=== PATIENT | female | born 1955 | race Caucasian/White ===

== ENCOUNTER 2024-10-02 10:48 | Emergency (ER) | payer BC, OTHER ==
[~2024-10-02] VITALS: Ht 167.6 cm; Wt 54.4 kg
[2024-10-02] MEDS: IBUPROFEN 200 MG TABLET PO ONE (12:13)
[2024-10-02] MEDS: ACETAMINOPHEN 500 MG TABLET PO ONE (12:13)
[2024-10-02 12:26] VITALS: BP 107/73; TEMP 98.2; O2SAT 99
== END 2024-10-02 12:28 | disposition home or self-care (01) ==
LOC: ER 10:48
DX: S42.292A Other displaced fracture of upper end of left humerus, initial encounter for closed fracture (principal); Z88.0 Allergy status to penicillin; W01.0XXA Fall on same level from slipping, tripping and stumbling without subsequent striking against object, initial encounter; Y93.89 Activity, other specified; Y92.89 Other specified places as the place of occurrence of the external cause; Y99.8 Other external cause status
CPT/HCPCS: 73020; 73060; A4606; A4663

== ENCOUNTER 2024-10-07 08:00 | Emergency (ER) | payer SELFPAY ==
[~2024-10-07] VITALS: Ht 167.6 cm; Wt 53.5 kg
[2024-10-07 09:23] VITALS: BP 134/70; TEMP 98.6; O2SAT 99
== END 2024-10-07 09:29 | disposition home or self-care (01) ==
LOC: ER 08:00
DX: S09.8XXA Other specified injuries of head, initial encounter (principal); R51.9 Headache, unspecified; Z88.0 Allergy status to penicillin; W18.39XA Other fall on same level, initial encounter; Y93.89 Activity, other specified; Y92.89 Other specified places as the place of occurrence of the external cause; Y99.8 Other external cause status
CPT/HCPCS: 70450; A4606; A4663

== ENCOUNTER 2024-10-10 08:58 | Emergency (ER) | payer SELFPAY ==
[~2024-10-10] VITALS: Ht 167.6 cm; Wt 52.2 kg
[2024-10-10 11:57] VITALS: BP 110/69; O2SAT 98
== END 2024-10-10 11:30 | disposition home or self-care (01) ==
LOC: ER 08:58
DX: S42.252A Displaced fracture of greater tuberosity of left humerus, initial encounter for closed fracture (principal); M25.512 Pain in left shoulder; Z60.2 Problems related to living alone; Z88.0 Allergy status to penicillin; W18.39XA Other fall on same level, initial encounter; Y93.89 Activity, other specified; Y92.89 Other specified places as the place of occurrence of the external cause; Y99.8 Other external cause status
CPT/HCPCS: 73020; A4606; A4663

== ENCOUNTER 2025-03-09 09:03 | Emergency (ER) | payer MEDICARE ==
[~2025-03-09] VITALS: Ht 167.6 cm; Wt 54.4 kg
[2025-03-09 10:00] LABS: BASOPHILS % (AUTO) 1.2 % (0.0-2.0); EOSINOPHILS # (AUTO) 0.2 K/uL (0.0-0.7); EOSINOPHILS % (AUTO) 4.2 % (0.0-7.0); HEMATOCRIT 40.9 % (31.2-41.9); HEMOGLOBIN 13.6 g/dL (10.9-14.3); LYMPHOCYTES # (AUTO) 0.7 K/uL (0.8-4.8); LYMPHOCYTES % (AUTO) 17.4 % (20.5-51.5); MEAN CORPUSCULAR HEMOGLOBIN 31.1 uug (24.7-32.8); MEAN CORPUSCULAR HGB CONC 33 g/dL (32.3-35.6); MEAN CORPUSCULAR VOLUME 93.7 fL (75.5-95.3); MONOCYTES # (AUTO) 0.4 K/uL (0.1-1.30); MONOCYTES % (AUTO) 9.9 % (0.0-11.0); NEUTROPHILS # (AUTO) 2.6 K/uL (1.8-8.9); NEUTROPHILS % (AUTO) 67.3 % (38.5-71.5); PLATELET COUNT (AUTO) 202 K/uL (179-408); RED BLOOD CELL COUNT(AUTO) 4.36 MIL/uL (3.63-4.92); RED CELL DISTRIBUTION WIDTH 13.3 % (12.3-17.7); WHITE BLOOD COUNT (AUTO) 3.9 K/uL (3.8-11.8)
[2025-03-09 10:04] LABS: DIFFERENTIAL COMMENT 1
[2025-03-09 10:07] LABS: CALCIUM 9.4 mg/dL (8.5-10.1); CARBON DIOXIDE 26 mmol/L (21-32); CHLORIDE 107 mmol/L (98-107); CREATININE 0.7 mg/dL (0.6-1.3); GLUCOSE 102 mg/dL (74-106); POTASSIUM 4.1 mmol/L (3.5-5.1); SODIUM SERUM 142 mmol/L (136-145); UREA NITROGEN, BLOOD 13 mg/dL (7-18)
[2025-03-09] MEDS ORDERED: LORA0.5T48 PO (10:49)
[2025-03-09 11:15] VITALS: BP 116/76; O2SAT 99
== END 2025-03-09 11:20 | disposition home or self-care (01) ==
LOC: ER 09:03
DX: F41.0 Panic disorder [episodic paroxysmal anxiety] (principal); F43.9 Reaction to severe stress, unspecified; R00.0 Tachycardia, unspecified; R53.83 Other fatigue; Z88.0 Allergy status to penicillin; Z60.2 Problems related to living alone; Z88.8 Allergy status to other drugs, medicaments and biological substances
CPT/HCPCS: 36415; 83735; 84484; 85025; A4606; A4663